=== PATIENT | female | born 1980 | race Caucasian/White ===

== ENCOUNTER 2024-11-25 11:35 | Outpatient (CLI) | payer MEDICARE, SELFPAY | END 2024-11-25 23:59 | disposition home or self-care (01) | LOC: LAB.DROPOF 11-26 14:39 | PROVIDERS: PCP Family Medicine; Visit Provider Family Medicine | DX: N39.0 Urinary tract infection, site not specified (principal) | CPT/HCPCS: 87086 ==

== ENCOUNTER 2025-02-06 13:03 | Outpatient (CLI) | payer MEDICAID, SELFPAY ==
--- NOTE | 2025-02-06 13:00 | CT_ITS ---
FINAL REPORT TECHNIQUE: The patient was injected with IV contrast. Axial images were obtained of the chest by computed tomography. Precontrast images were also obtained. This study was performed with techniques to keep radiation doses as low as reasonably achievable (ALARA). Individualized dose reduction techniques using automated exposure control or adjustment of mA and/or kV according to the patient's size were employed. CLINICAL HISTORY: breast cancer mets to sternum/ribs/scapula COMPARISON: None FINDINGS: CT OF THE CHEST WITH AND WITHOUT CONTRAST: There is no axillary adenopathy. There is no mediastinal or hilar adenopathy. There are surgical changes from bilateral breast reconstruction. Heart size is normal. There is no pericardial or pleural effusion identified. There is no suspicious pulmonary nodule or infiltrate identified. Limited images of the upper abdomen demonstrate an enhancing mass in the right lateral liver dome measuring 13 mm. There is some sclerosis in the inferior most right scapular spine which may correspond to reported bony metastases. No destructive sternal lesion evident. There are chronic appearing subtle inferior endplate compression fractures in the upper thoracic spine without associated suspicious lesion. IMPRESSION: No evidence of extraosseous metastatic disease to the thorax. Nonspecific enhancing lesion liver dome. Recommend MRI using hemangioma protocol. Reported bony metastases not well appreciated by CT scan. Reviewed, Interpreted and Dictated by Jonas Sapp MD Transcribed by Wendi Paul Authenticated and [facility]
--- OUTSIDE RECORDS SUMMARY | 2025-02-06 13:05 | XMS_ITS | Encounter Summary ---
Author Organization Healthcare Address [address] [id number] Care Team Providers Care Property Inspector Name Role Phone Unavailable Primary Care Provider Unavailabl e Reason for Referral * Consultation (Routine) - Authorized Specialty Diagnoses / Procedures Referred By Contac t Referred To Contact Pain Medicine Diagnoses Bilateral malignant neoplasm of breast in female, unspecified estrogen receptor status, unspecified site of breast Postoperative pain Faustino Estes MD [address] [place] [address] Phone: tel: fax: [facility] [address] [place] [address] Phone: tel: fax: Referral ID Status Reason Start Date Expiration Date Visits Requested Visits Authorized [id number] Authorized Specialty Services Required 11/27/2024 05/29/2026 1 1 Encounter Details Date Type Department Care Team (Late st Contact Info) Description 11/27/2024 Community [facility] [address] [place] [address] Faustino Estes MD [address] [place] [address] Bilateral malignant neoplasm of breast in female, unspecified estrogen receptor status, unspecified site of breast (Primary Dx); Postoperative pain Social History Tobacco Use Types Packs/Day Years Used Date Smoking Tobacco: Never Assessed Comments Unknown Sex and Gender Information Value Date Recorded Sex Assigned at Not on file Legal Sex Female 6:27 PM EDT Gender Identity Not on file Sexual Orientation Not on file documented as of this encounter Plan of Treatment Scheduled Referrals Name Type Priority Associated Diagnoses Order Schedule Ambulatory referral to Interventional Pain Outpatient Referral Routine Bilateral malignant neoplasm of breast in female, unspecified estrogen receptor status, unspecified site of breast Postoperative pain Expected: 11/27/2024 (Approximate), Expires: 05/31/2026 documented as of this encounter Visit Diagnoses Diagnosis Bilateral malignant neoplasm of breast in female, unspecified estrogen receptor status, unspecified site of breast- Primary Postoperative pain Other acute postoperative pain documented in this encounter
--- OUTSIDE RECORDS SUMMARY | 2025-02-06 13:05 | XMS_ITS | Clinical Summary ---
Author Organization [facility] Address [address] [place] [address] Care Team Providers Care Tractor Expert Name Role Phone Unavailable Primary Care Provider Unavailabl e Encounters Date Type Department Care Team Description 11/27/2024 [facility] [address] [place] [address] Faustino Estes MD Bilateral malignant neoplasm of breast in female, unspecified estrogen receptor status, unspecified site of breast (Primary Dx); Postoperative pain from Last 3 Months Social History Tobacco Use Types Packs/Day Years Used Date Smoking Tobacco: Never Assessed Comments Unknown Sex and Gender Information Value Date Recorded Sex Assigned at Not on file Legal Sex Female 6:27 PM EDT Gender Identity Not on file Sexual Orientation Not on file Plan of Treatment Not on file Insurance [employer] [address] [place] [address]
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
[2025-02-06] MEDS: SODIUM CHLORIDE 0.9% 10ML SYR (RAD ONLY) 10 ML IV (13:25)
[2025-02-06] MEDS: IOPAMIDOL-370 (76%);100ML BOTTLE 75 ML IV (13:26)
== END 2025-02-06 23:59 | disposition home or self-care (01) ==
PROVIDERS: PCP Family Medicine; Visit Provider Family Medicine
DX: C50.919 Malignant neoplasm of unspecified site of unspecified female breast (principal); C79.51 Secondary malignant neoplasm of bone; R93.5 Abnormal findings on diagnostic imaging of other abdominal regions, including retroperitoneum; Z15.01 Genetic susceptibility to malignant neoplasm of breast; Z15.09 Genetic susceptibility to other malignant neoplasm; Z17.32 Human epidermal growth factor receptor 2 negative status
CPT/HCPCS: 71270; Q9967

== ENCOUNTER 2025-06-17 11:11 | Outpatient (CLI) | payer MEDICAID, SELFPAY ==
--- OUTSIDE RECORDS SUMMARY | 2024-12-28 04:00 | XMS_ITS ---
Author Organization [facility] Address [address] [place] [address] Phone [phone] Care Team Providers Care Dragger Out Name Role Phone Migration, Provider Unavailable Unavailable REASON FOR VISIT EMR-Lenard Encounters Encounter Location Date Provider Diagnosis [facility] Services [facility] [address] [facility] [address] [place] [address] 12/28/2024 Provider Migration Plan Of Treatment No Information Progress Notes * JOANN ECKERT SDOB:1980 (44 yo F)Acc No.[id number]:12/28/2024 Patient: Cb LUCIANO JOANN Josh :1980 A ge:44 Y S ex:Female Address:[address] [place], [place] [address], [address] Subjective: * Chief Complaints: * E MR-Lenard * * Date:
--- OUTSIDE RECORDS SUMMARY | 2024-12-29 04:00 | XMS_ITS ---
Author Organization [facility] Address [address] [place] [address] Phone [phone] Care Team Providers Care Service Center Coordinator Name Role Phone Migration, Provider Unavailable Unavailable REASON FOR VISIT EMR-Lenard Encounters Encounter Location Date Provider Diagnosis [facility] [address] [facility] [address] [place] [address] 12/29/2024 Provider Migration Plan Of Treatment No Information Progress Notes * JOANN ECKERT SDOB:1980 (44 yo F)Acc No.[id number]:12/29/2024 Patient: Cb LUCIANO JOANN Josh :1980 A ge:44 Y S ex:Female Address:[address] [place] [address] [place], [address] Subjective: * Chief Complaints: * E MR-Lenard * * Date:
--- OUTSIDE RECORDS SUMMARY | 2025-06-17 11:14 | XMS_ITS | Patient Health Record ---
Author Organization [facility] Address [address] [place] [address] Care Team Providers Care Embedded Systems Designer Name Role Phone MAGEN DEVIN Unavailable [phone] Reason For Referral No Information Social History Tobacco Use: Social History Observation Description Date Details (start date - stop date) Former Smoker NA - NA Tobacco Control (Standard) Question Answer Notes Tobacco use: Former smoker Encounters Encounter Location Date Provider Diagnosis [facility] [address] [place] [address] 09/27/2024 [facility] Encounter for genera l adult medical examination without abnormal findings Z00.00 Assessments Encounter Date Diagnosis (ICD Code) Assessment Notes Treatment Notes Treatment Clinical Notes Section Notes 09/27/2024 Encounter for general adult medical examination without abnormal findings (ICD-10 - Z00.00) Plan Of Treatment No Information Insurance Providers Payer Name Payer Address Payer Phone Subscriber Number Group Number Insured Name Patient Relationship to Insured Coverage Start Date Coverage End Date [employer] [address] [address] [place] [address] [id number] Surinder Mendoza Self - patient is the insured Medical (General) History Medical History History ICD Code Double mastectomy September 27, 2022 Appendix rupture 2009 Still have high blood pressure and sugar 2019
--- OUTSIDE RECORDS SUMMARY | 2025-06-17 11:14 | XMS_ITS | Clinical Summary ---
Author Organization [facility] Address [address] [place] [address] Phone Care Team Providers Care Supervisor Vegetable Farming Name Role Phone Unavailable Primary Care Provider [...] on file Sexual Orientation Not on file Last Filed Vital Signs Vital Sign Reading [...] 08/30/2024 11:33 AM EST Plan of Treatment Health Maintenance Due Date Last Done Comments Annual Wellness Exam 09/08/1982 Hepatitis B Vaccine (1 of 3 - 19+ 3-dose series) 09/08/1998 Cervical Cancer Screening 09/08/2000 Pap Smear 09/08/2000 HPV/Pap Cotest 09/08/2009 Breast Cancer Screening 2019 Cologuard 09/08/2024 Colon Cancer Screening 09/08/2024 Colonoscopy 09/08/2024 FIT 09/08/2024 Sigmoidoscopy 09/08/2024 Virtual Colonography 09/08/2024 COVID-19 Vaccine (1 - 2024-2 6 season) 2025 Influenza Vaccine (#1) 2025 6 (Declined) DTaP/TDaP/Td [...] Free Lifestyle No Shelbie Young L[place] [id number] [place] [id number] MDR
--- OUTSIDE RECORDS SUMMARY | 2025-06-17 11:15 | XMS_ITS | Patient Health Record ---
Author Organization [facility] Address [address] [place] [address] Phone [phone] Care Team Providers Care Kier Hand Name Role Phone Migration, Provider Unavailable Unavailable Reason For Referral No Information Plan Of Treatment No Information Insurance Providers Payer Name Payer Address Payer Phone Subscriber Number Group Number Insured Name Patient Relationship to Insured Coverage Start Date Coverage End Date [facility] [address] [facility] [address] [id number] JOANN ECKERT Self - patient is the insured 1 [id number] Hrsa Uninsured Te [address] [address] DO NOT MAIL, [place] [address] [id number] JOANN ECKERT Self - patient is the insured 1 2
[2025-06-17 11:37] LABS: Hematocrit 37.1 % (37.0-47.0); Hemoglobin 12.4 g/dL (12.2-16.2); Immature Granulocytes % 0.3 %; Mean Corpuscular HGB Conc 33.4 g/dL (31.8-35.4); Mean Corpuscular Hemoglobin 29.4 pg (27.0-31.2); Mean Corpuscular Volume 87.9 fl (81-99); Nucleated Red Blood Cells % 0 %; Platelet Count 364 K/mm3 (142-424); Red Blood Count 4.22 M/mm3 (4.20-5.40); Red Cell Distribution Width-SD 40.9 fL; White Blood Count 8.9 K/mm3 (4.8-10.8)
[2025-06-17 11:57] LABS: Albumin Level 4.2 g/dl (3.5-5.0); Chloride 110 mmol/L (98-107); Potassium 3.8 mmoL/L (3.5-5.1); Sodium 143 mmol/L (136-145)
[2025-06-17 12:00] LABS: Alanine Aminotransferase 14 U/L (12-78); Albumin/Globulin Ratio 1.5 (1.1-1.8); Alkaline Phosphatase 72 U/L (38-126); Anion Gap 10.8 mEq/L (5-15); Aspartate Amino Transferase 27 U/L (14-36); Bilirubin,Total 0.5 mg/dl (0.2-1.3); Blood Urea Nitrogen 20 mg/dl (7-17); Calcium 9.8 mg/dl (8.4-10.2); Carbon Dioxide 26 mmol/L (22.0-30.0); Cholesterol 146 mg/dl (140-200); Creatinine,Serum 0.70 mg/dl (0.52-1.04); Estimated Glomerular Filt Rate 90 ml/min (>60); GFR (African American) 109 ML/MIN (>60); Globulin 2.8 g/dL (1.3-3.2); Glucose 106 mg/dl (74-100); HDL Cholesterol 51 mg/dl (40-60); Total Protein,Serum 7.0 g/dl (6.3-8.2); Triglycerides 67 mg/dl (30-150)
[2025-06-17 12:46] LABS: Hemoglobin A1C 5.3 % (4.0-6.0)
[2025-06-17 12:48] LABS: Hepatitis C Ab Qual. W/ RFX REACTIVE (Negative)
== END 2025-06-17 23:59 | disposition home or self-care (01) ==
LOC: LAB 11:12
PROVIDERS: PCP Internal Medicine; Visit Provider Internal Medicine
DX: Z00.00 Encounter for general adult medical examination without abnormal findings (principal); Z11.4 Encounter for screening for human immunodeficiency virus [HIV]; Z13.1 Encounter for screening for diabetes mellitus; Z11.59 Encounter for screening for other viral diseases; Z13.220 Encounter for screening for lipoid disorders
CPT/HCPCS: 36415; 80053; 80061; 83036; 85025; 86803; 87389; 87522